=== PATIENT | female | born 1990 | race Hispanic/Latino ===

== ENCOUNTER 2020-11-03 07:46 | Day surgery (SDC) | payer MEDICAID ==
[2020-10-27 09:28] LABS: BASOPHILS % (AUTO) 0.9 % (0.0-5.0); EOSINOPHILS % (AUTO) 1.4 % (0.0-8.0); HEMATOCRIT 38.5 % (36-48); LYMPHOCYTES % (AUTO) 25.1 % (21.0-51.0); MEAN CORPUSCULAR HEMOGLOBIN 29.3 pg (27.0-33.0); MEAN CORPUSCULAR HGB CONC 32.2 g/dL (32.0-36.0); MONOCYTES % (AUTO) 6.2 % (3.0-13.0); PLATELET COUNT (AUTO) 255 K/uL (130-400); RED BLOOD CELL COUNT(AUTO) 4.23 MIL/uL (4.00-5.50); RED CELL DISTRIBUTION WIDTH 13.6 % (11.0-15.5); WHITE BLOOD COUNT (AUTO) 5.6 K/uL (4.8-10.8)
[2020-10-27 09:40] LABS: CREATININE 0.7 mg/dL (0.5-1.5); POTASSIUM 4.1 mmol/L (3.5-5.1)
[2020-11-02 10:48] VITALS: BP 102/78
[2020-11-03] VITALS (20 sets, daily range): BP systolic 90–119; BP diastolic 48–69
[~2020-11-03] VITALS: Ht 157.5 cm; Wt 57.8 kg
[~2020-11-03 07:46] MED LIST: 0.9% NACL 500ML IV.SOLN 500 ML IV SCH; CEFAZOLIN SODIUM 1 GM VIAL IVP SCH
[2020-11-03] MEDS ORDERED: LACTATED RINGERS 1000ML 1,000 ML IV ONE (08:18)
[2020-11-03] MEDS ORDERED: PROPOFOL 10 MG/ML 20ML VIAL IV ONE (09:51)
[2020-11-03] MEDS ORDERED: SUCCINYLCHOLINE 200MG/10ML SYR ONE (09:51)
[2020-11-03] MEDS ORDERED: GLYCOPYRROLATE 1 MG/5 ML SYRINGE ONE (09:51)
[2020-11-03] MEDS ORDERED: DEXAMETHASONE SOD PHOSPHATE 10MG/ML 1ML VIAL ONE (09:51)
[2020-11-03] MEDS ORDERED: LIDOCAINE PF 100MG/5ML (2%) SYRINGE 5ML ONE (09:51)
[2020-11-03] MEDS ORDERED: ROCURONIUM 10MG/1ML SYR 10 MG/ML ML ONE (09:52)
[2020-11-03] MEDS ORDERED: NEOSTIGMINE 5MG/5ML SYR IV ONE (09:52)
[2020-11-03] MEDS ORDERED: ONDANSETRON 4MG INJ ONE (09:52)
[2020-11-03] MEDS ORDERED: MIDAZOLAM HCL 1 MG/ML 2ML VIAL ONE (09:52)
[2020-11-03] MEDS ORDERED: FENTANYL CITRATE PF 50 MCG/1 ML 5ML AMP IV ONE (09:53)
[2020-11-03] MEDS ORDERED: BUPIVACAINE/PF 0.5% 30ML VIAL ONE (10:27)
[2020-11-03] MEDS ORDERED: MEPERIDINE-PF 25 MG/ML SYG ONE (11:59)
== END 2020-11-03 14:30 | disposition home or self-care (01) ==
LOC: DAH 07:46
PROVIDERS: ATTEND Surgery
DX: K80.64 Calculus of gallbladder and bile duct with chronic cholecystitis without obstruction (principal); Z20.822 Contact with and (suspected) exposure to COVID-19; K82.8 Other specified diseases of gallbladder; Z79.01 Long term (current) use of anticoagulants
CPT/HCPCS: 36415; 47562; 80048; 84703; 85025; 85730; 87426; A4215; A4221; A4222; A4223; A4649 ×2; A4663; A6260; C1769 ×3; G0168; J0330; J0690; J1100; J2175; J2250; J2405; J2710; J3010; J3490 ×3; J7030; J7120; S0020; J2001; J2704